=== PATIENT | female | born 1995 | race Caucasian/White ===

== ENCOUNTER 2018-07-30 19:15 | Emergency (ER) | payer BC ==
[~2018-07-30] VITALS: Ht 157.5 cm; Wt 62.6 kg
[2018-07-30 19:15] VITALS: BP 119/77
--- NOTE | 2018-07-30 19:52 | PHYS DOC ---
Past History Past Medical History: No Pertinent History Additional Past Surgical Histo: Dental implant Smoking: Non-smoker Alcohol Use: Occasionally Drug Use: None Adult General Chief Complaint Chief Complaint: SORE THROAT HPI HPI 22-year-old female presents with report of sore throat 2 days. Patient does report subjective fever/chills. Denies known sick contacts. Unsure regarding . Reports last menstrual period approximately 3-1/2 weeks ago. Review of Systems Review of Systems Constitutional: Reports fever and chills [] Eyes: Denies change in visual acuity, redness, or eye pain [] HENT: Denies nasal congestion; reports sore throat [] Respiratory: Denies cough or shortness of breath [] Cardiovascular: Denies chest pain GI: Reports some nausea and vomiting; denies diarrhea [] : Denies dysuria or hematuria [] Musculoskeletal: Denies back pain or joint pain [] Integument: Denies rash or skin lesions [] Neurologic: Denies headache, focal weakness or sensory changes [] Complete systems were reviewed and found to be within normal limits, except as documented in this note. Allergies Allergies Allergies Coded Allergies Type Severity Reaction Last Updated Verified No Known Drug Allergies 07/30/18 No Physical Exam Physical Exam Constitutional: Well developed, well nourished, anxious, ill but non-toxic in appearance. [] HENT: Normocephalic, atraumatic, bilateral TMs normal, oropharynx moist, pharyngeal erythema with some exudate noted Eyes: Conjunctiva normal, no discharge. [] Neck: Normal range of motion, no tenderness, supple, no meningeal signs Cardiovascular: Tachycardia, no murmur [] Lungs & Thorax: Bilateral breath sounds clear to auscultation [] Abdomen: Soft, no tenderness Skin: Warm, dry, no erythema, no rash. [] Extremities: No tenderness, ROM intact, no edema. [] Neurologic: Alert and oriented X 3, no focal deficits noted. [] Psychologic: Affect anxious, judgement normal EKG EKG [] Radiology/Procedures Radiology/Procedures [] Course & Med Decision Making Course & Med Decision Making Pertinent Lab studies reviewed. (See chart for details) Patient presents with report of sore throat with subjective fever/chills 2 days. Patient also reports some associated nausea and vomiting. Denies any current nausea. Patient noted to be febrile. Fever addressed. Symptomatic treatment provided with steroid. Rapid influenza negative. UA without signs of infection. Urine negative. Rapid strep positive. IM Bicillin provided. Patient stable for discharge with outpatient follow-up with PCP. Discussed findings and plan with patient and family, who acknowledge understanding and agreement. Patient left prior to receiving discharge paperwork. Emanuel Disclaimer Emanuel Disclaimer This electronic medical record was generated, in whole or in part, using a voice recognition dictation system. Departure Departure: Impression: Primary Impression: Strep pharyngitis Disposition: HOME, SELF-CARE Condition: STABLE Referrals: PCP,NO (PCP) Patient Instructions: Strep Throat, Group A Streptococcus Additional Instructions: You have been given an 1 time dose of an antibiotic to treat your strep pharyngitis. GURPREET ARGUELLO DO Jul 30, 2018 19:52
[2018-07-30] MEDS ORDERED: DEXAMETHASONE 4 MG TABLET PO ONE (20:00)
[2018-07-30] MEDS ORDERED: IBUPROFEN 600 MG TABLET. PO ONE (20:00)
[2018-07-30 20:31] LABS: BACTERIA,URINE 0 /HPF (0-FEW); BILIRUBIN,URINE NEG (NEG); CLARITY,URINE HAZY; COLOR,URINE AMBER; GLUCOSE,URINE NEG (NEG); NITRITE,URINE NEG (NEG); RBC,URINE 0 /HPF (0-2); SQUAMOUS EPITHELIAL CELL,UR MOD /LPF; UROBILINOGEN,URINE 1 mg/dL (0.2 mg/dL)
[2018-07-30] MEDS ORDERED: PENICILLIN G BENZATHINE LA 1,200,000 UNIT/2 ML DISP.SYRIN. IM ONE (20:45)
[2018-07-30 21:07] LABS: INFLUENZA A PATIENT NEGATIVE (NEGATIVE); INFLUENZA B PATIENT NEGATIVE (NEGATIVE)
== END 2018-07-30 20:50 | disposition home or self-care (01) ==
LOC: ER 19:15
DX: J02.0 Streptococcal pharyngitis (principal); R11.2 Nausea with vomiting, unspecified; B95.0 Streptococcus, group A, as the cause of diseases classified elsewhere
CPT/HCPCS: 81001; 81025; 87804; 87880; 96372; 99283; J0561; J8540